=== PATIENT | male | born 1955 | race Caucasian/White ===

== ENCOUNTER 2019-09-07 09:35 | Inpatient (IN) | payer MEDICARE, OTHER ==
[~2019-09-07] VITALS: Ht 203.2 cm; Wt 167.0 kg
[2019-09-07] VITALS (14 sets, daily range): BP systolic 90–134; BP diastolic 51–96
--- NOTE | 2019-09-07 09:56 | NUR ---
PT IS IN ROOM #1B. DR MORENO EVALUATED THE PT.
[2019-09-07 10:06] LABS: BASOPHILS # (AUTO) 0.1 K/uL (0.0-8.0); EOSINOPHILS # (AUTO) 0.2 K/uL (0.0-0.7); EOSINOPHILS % (AUTO) 2.2 % (0.0-7.0); LYMPHOCYTES % (AUTO) 9.9 % (20.5-51.5); MEAN CORPUSCULAR HEMOGLOBIN 29.6 uug (23.8-33.4); MEAN CORPUSCULAR HGB CONC 32 g/dL (32.5-36.3); MEAN CORPUSCULAR VOLUME 91.8 fL (73.0-96.2); MONOCYTES # (AUTO) 1.3 K/uL (2.0-10.0); MONOCYTES % (AUTO) 12.8 % (0.0-11.0); NEUTROPHILS # (AUTO) 7.7 K/uL (1.8-8.9); NEUTROPHILS % (AUTO) 74.1 % (38.5-71.5); PLATELET COUNT (AUTO) 231 K/uL (152-348); WHITE BLOOD COUNT (AUTO) 10.4 K/uL (3.6-10.2)
[2019-09-07 10:08] LABS: HEMATOCRIT 11.9 % (36.7-47.1)
[2019-09-07 10:09] LABS: CREATININE 0.9 mg/dL (0.6-1.3); HEMOGLOBIN 3.8 g/dL (12.5-16.3)
[2019-09-07] MEDS ORDERED: LEVO25TA9 PO (10:09)
[2019-09-07] MEDS ORDERED: SENN-22 PO (10:09)
[2019-09-07] MEDS ORDERED: LACT1CAP74 PO (10:09)
[2019-09-07] MEDS ORDERED: MULT1TAB73 PO (10:09)
[2019-09-07] MEDS ORDERED: ATOR80TA PO (10:09)
[2019-09-07] MEDS ORDERED: HYDR453.3 TP (10:09)
[2019-09-07] MEDS ORDERED: DIGO250T PO (10:09)
[2019-09-07] MEDS ORDERED: AMOX500C2 PO (10:09)
[2019-09-07] MEDS ORDERED: GABA300C PO (10:09)
[2019-09-07] MEDS ORDERED: CEFT2PIG5 IV (10:09)
[2019-09-07] MEDS ORDERED: OXYC-128 PO (10:09)
[2019-09-07] MEDS ORDERED: ASPI81TA31 PO (10:09)
[2019-09-07] MEDS ORDERED: CARV25TA PO (10:09)
[2019-09-07] MEDS ORDERED: FURO-151 PO (10:09)
[2019-09-07] MEDS ORDERED: APIX5TAB PO (10:09)
[2019-09-07 10:14] LABS: BILIRUBIN,DIRECT 0.5 mg/dL (0.0-0.2); BILIRUBIN,TOTAL 0.8 mg/dL (0.2-1.0); TOTAL PROTEIN, SERUM 5.1 g/dL (6.4-8.2)
[2019-09-07] MEDS ORDERED: PANTOPRAZOLE SODIUM IV 80 MG in IV DEXTROSE 5% 500 ML IV ONE (10:15)
[2019-09-07] MEDS ORDERED: PANTOPRAZOLE SODIUM IV 80 MG in IV DEXTROSE 5% 100 ML IV ONE (10:15)
[2019-09-07] MEDS ORDERED: PANTOPRAZOLE SODIUM 40 MG VIAL IV ONE (10:30)
[2019-09-07] MEDS ORDERED: PANTOPRAZOLE SODIUM 40 MG VIAL ONE (10:30)
[2019-09-07] MEDS ORDERED: PANTOPRAZOLE SODIUM IV 40 MG in IV DEXTROSE 5% 100 ML IV ONE (10:45)
--- NOTE | 2019-09-07 11:43 | NUR ---
BLOOD TRANSFUSION OF THE 1st PRBC's WAS STARTED AT 1122. SEE BLOOD TRANSFUSION REPORT.
--- NOTE | 2019-09-07 11:43 | NUR ---
DR JANSEN WAS CALLED FOR GI CONSULT ACCORDING TO DR MORENO REQUEST. DR MORENO TALKED TO DR JANSEN.
--- NOTE | 2019-09-07 11:44 | NUR ---
REPORT WAS GIVEN TO [facility] MANAGER ZEHRA PT WAS TRANSFERED TO CCU ROOM #4 IVANA OVERFLOW.
[2019-09-07 12:05] LABS: *BILIRUBIN,URIN NEGATIVE (NEGATIVE); *BLOOD, URINE 2+ (NEGATIVE); *CLARITY,URINE CLEAR (CLEAR); *COLOR,URINE YELLOW (YELLOW); *KETONES,URINE NEGATIVE (NEGATIVE); *UROBILINOGEN,URINE 0.2 E.U./dl (NORMAL); LEUKOCYTE ESTERASE ,URINE TRACE (NEGATIVE); NITRITE, URINE NEGATIVE (NEGATIVE); PH,URINE 5.5 (5.0-8.0); UGLUCOSE NEGATIVE (NEGATIVE)
[2019-09-07 12:48] LABS: RBC,URINE 20-50 /HPF (0-3); WBC,URINE 0-3 /HPF (0-3)
[2019-09-07 12:49] LABS: BACTERIA,URINE NONE SEEN /HPF (NONE SEEN); SQUAMOUS EPITHELIAL CELL,UR NONE SEEN /HPF (NONE SEEN)
--- NOTE | 2019-09-07 13:45 | NUR ---
Attending physician Dr. Lainez in the unit to see and examine patient, full report given.
--- NOTE | 2019-09-07 13:45 | NUR ---
PICC line R.N. in the unit to replace picc line.
[2019-09-07] MEDS ORDERED: PANTOPRAZOLE SODIUM IV 80 MG in IV DEXTROSE 5% 500 ML IV SCH (15:00)
[2019-09-07] MEDS: MORPHINE SULFATE 4 MG/1 ML DISP.SYRIN IV PRN ×2 (15:12→20:33)
[2019-09-07] MEDS ORDERED: ONDANSETRON 4 MG/2 ML VIAL IV PRN (16:30)
[2019-09-07] MEDS ORDERED: ACETAMINOPHEN 650 MG SUPP.RECT RC PRN (16:30)
--- NOTE | 2019-09-07 16:36 | NUR ---
Orders to up-grade pt. to ICU status received.
[2019-09-07] MEDS: HYDROCORTISONE 2.5% CREAM 20 GM TUBE TOP SCH (16:42)
[2019-09-07] MEDS: IV D5/ 0.9% NACL 1,000 ML IV PRN (17:19)
[2019-09-07 20:09] LABS: HEMATOCRIT 14.7 % (36.7-47.1); HEMOGLOBIN 4.8 g/dL (12.5-16.3)
[2019-09-07] MEDS: PANTOPRAZOLE SODIUM 40 MG VIAL IV SCH (21:24)
[2019-09-08] VITALS (24 sets, daily range): BP systolic 90–134; BP diastolic 51–85
[2019-09-08] MEDS: MORPHINE SULFATE 4 MG/1 ML DISP.SYRIN IV PRN ×2 (00:36→06:22)
[2019-09-08 05:26] LABS: BASOPHILS # (AUTO) 0.1 K/uL (0.0-8.0); EOSINOPHILS # (AUTO) 0.2 K/uL (0.0-0.7); LYMPHOCYTES # (AUTO) 0.8 K/uL (20.0-40.0); MONOCYTES # (AUTO) 1.5 K/uL (2.0-10.0)
[2019-09-08 05:27] LABS: BASOPHILS % (AUTO) 1.2 % (0.0-2.0); EOSINOPHILS % (AUTO) 2.6 % (0.0-7.0); LYMPHOCYTES % (AUTO) 9.4 % (20.5-51.5); MEAN CORPUSCULAR HEMOGLOBIN 28.9 uug (23.8-33.4); MEAN CORPUSCULAR HGB CONC 33 g/dL (32.5-36.3); MEAN CORPUSCULAR VOLUME 88.2 fL (73.0-96.2); MONOCYTES % (AUTO) 18.1 % (0.0-11.0); NEUTROPHILS # (AUTO) 5.8 K/uL (1.8-8.9); NEUTROPHILS % (AUTO) 68.7 % (38.5-71.5); PLATELET COUNT (AUTO) 240 K/uL (152-348); WHITE BLOOD COUNT (AUTO) 8.5 K/uL (3.6-10.2)
[2019-09-08 05:43] LABS: BILIRUBIN,TOTAL 1.9 mg/dL (0.2-1.0); CREATININE 1.1 mg/dL (0.6-1.3); MAGNESIUM 1.9 mg/dL (1.8-2.4); PHOSPHOROUS 3.5 mg/dL (2.5-4.9); TOTAL PROTEIN, SERUM 5.5 g/dL (6.4-8.2)
[2019-09-08 05:50] LABS: RED BLOOD CELL COUNT(AUTO) 2.21 MIL/uL (4.06-5.63); THYROID STIMULATING HORMONE 13.4 mIU/mL (0.358-3.740)
[2019-09-08 05:51] LABS: HEMATOCRIT 19.5 % (36.7-47.1); HEMOGLOBIN 6.4 g/dL (12.5-16.3)
[2019-09-08] MEDS: IV D5/ 0.9% NACL 1,000 ML IV PRN (06:13)
[2019-09-08 06:27] LABS: EOSINOPHILS % (MANUAL) 3 % (0-8); LYMPHOCYTES % (MANUAL) 12 % (20-40); MONOCYTES % (MANUAL) 11 % (2-10); NEUTROPHILS % (MANUAL) 74 % (42-75)
--- NOTE | 2019-09-08 07:30 | NUR ---
Recieved pt in bed very sound asleep but arousable. Morbidly obesed male, arousable to call, oriented to his name but to time and polace. HR is Afib with controlled ventricular response. No c/o CP. Main IVF is infusing on the BRADLEY. Both lower legs have cellulitis and are weaqk to move around. Deniess of any pain.
[2019-09-08] MEDS: PANTOPRAZOLE SODIUM 40 MG VIAL IV SCH ×2 (09:31→20:27)
[2019-09-08] MEDS: HYDROCORTISONE 2.5% CREAM 20 GM TUBE TOP SCH ×2 (09:32→17:00)
[2019-09-08] MEDS ORDERED: GOLYTELY 4000 ML BOTTLE PO ONE (10:00)
--- NOTE | 2019-09-08 10:30 | NUR ---
H&H are low. Dr Lainez ordered another 2 units of PRBC. Pt is still NPO.
--- NOTE | 2019-09-08 10:50 | NUR ---
Fi8rst unit of PRBC started. Seen and examined by the chain saw mechanic with new orders. Wound dressing done. Both legs are elevated on pillows.
--- NOTE | 2019-09-08 12:59 | NUR ---
WOUND CARE CONSULT: PT PRESENTS WITH LOWER EXTREMITY WOUNDS WHICH ARE BEING FOLLOWED BY DPM. DEFER TO DPM FOR WOUND TREATMENT PLAN. PT IS ABLE TO TURN AND REPOSITION IN BED AND IS CONTINENT AT THIS TIME WITH LAGOS CATH. DISCOLORATION AND SCARS NOTED TO UPPER BODY, ESPECIALLY CHEST, ABDOMEN AND ARMS, PRESENT ON ADMISSION. PT STATES WAS PREVIOUSLY PICKING AT HIS SKIN. RECOMMENDATIONS MADE FOR SKIN PROTECTION. DISCUSSED WITH NURSING STAFF. WILL SEE PRN. Addendum: 09/08/19 at 1302 by DESMOND ERICKSON RN Amended: Links added.
[2019-09-08] MEDS ORDERED: Z GUARD REMEDY PASTE 57 GM TUBE TOP PRN (13:15)
[2019-09-08] MEDS ORDERED: FUROSEMIDE 20 MG/2 ML VIAL IV PRN (14:00)
--- NOTE | 2019-09-08 14:00 | NUR ---
Arteriaq US on BLE done at the bedside as ordered. Consents done for EGD, COlonoscopy and wound debridement abby polaced on chart.
--- NOTE | 2019-09-08 14:10 | NUR ---
[id number] first unit of PRBC without any reactions.
--- NOTE | 2019-09-08 16:00 | NUR ---
Seen and examined by Dr Macedo with new [id number]. 2nd unit of PRBC started. Lasix 20mg slow IVP given in between units . Pt diuresing very dark orange urine. Pt is on clear liquids and pt is drinking a lot.
[2019-09-08] MEDS: DIGOXIN 250 MCG TABLET PO SCH (16:59)
[2019-09-08] MEDS ORDERED: FUROSEMIDE 40 MG/4 ML VIAL IV ONE (18:00)
--- NOTE | 2019-09-08 18:00 | NUR ---
Pt diuresed well. Status downgraded to tele as ordered.
--- NOTE | 2019-09-08 20:00 | NUR ---
RECEIVED PT. AWAKE & ALERT X2 W/ PERIODS OF CONFUSION & FORGETFULNESS. ON O2 @ 5L NC W/ O2 SAT OF 100%. PICC ON BRADLEY INTACT & PATENT. C-SCOPE AFIB CONTROLLED. KEPT HOB ELEVATED. AFEBRILE. BP STABLE.
[2019-09-08] MEDS ORDERED: NORMAL SALINE FLUSH 10 ML DISP.SYRIN IV PRN (21:45)
[2019-09-08] MEDS: NORMAL SALINE FLUSH 10 ML DISP.SYRIN IV SCH (21:55)
--- NOTE | 2019-09-08 23:45 | NUR ---
PT HAD 2300CC OF GOLYTELY SOLUTION, REFUSED TO DRINK MORE. NPO AFTER MIDNIGHT.
[2019-09-09] VITALS (9 sets, daily range): BP systolic 104–132; BP diastolic 57–75
--- NOTE | 2019-09-09 00:15 | NUR ---
RECEIVED PT FROM CCU. PT IN NO ACUTE DISTRESS. IV INTACT. LAGOS INTACT. SNF ASSESSMENT DONE. SAFETY AND COMFORT PROVIDED. WILL CONTINUE TO MONITOR,
[2019-09-09] MEDS: MORPHINE SULFATE 4 MG/1 ML DISP.SYRIN IV PRN ×5 (01:31→21:09)
[2019-09-09] MEDS: NORMAL SALINE FLUSH 10 ML DISP.SYRIN IV SCH ×3 (05:41→22:03)
[2019-09-09 05:45] LABS: BASOPHILS # (AUTO) 0.1 K/uL (0.0-8.0); BASOPHILS % (AUTO) 0.6 % (0.0-2.0); EOSINOPHILS # (AUTO) 0.3 K/uL (0.0-0.7); EOSINOPHILS % (AUTO) 2.3 % (0.0-7.0); LYMPHOCYTES # (AUTO) 0.7 K/uL (20.0-40.0); LYMPHOCYTES % (AUTO) 5.7 % (20.5-51.5); MEAN CORPUSCULAR HEMOGLOBIN 28.8 uug (23.8-33.4); MEAN CORPUSCULAR HGB CONC 32 g/dL (32.5-36.3); MEAN CORPUSCULAR VOLUME 89.7 fL (73.0-96.2); MONOCYTES # (AUTO) 1.4 K/uL (2.0-10.0); MONOCYTES % (AUTO) 11.1 % (0.0-11.0); NEUTROPHILS # (AUTO) 10.3 K/uL (1.8-8.9); NEUTROPHILS % (AUTO) 80.3 % (38.5-71.5); PLATELET COUNT (AUTO) 211 K/uL (152-348); WHITE BLOOD COUNT (AUTO) 12.9 K/uL (3.6-10.2)
--- NOTE | 2019-09-09 05:47 | NUR ---
PT WAS TAKEN BY SURGERY NURSES. PREOP CHECKLIST DONE. PT IN NO ACUTE DISTRESS. PT WOUND DRESSING DONE. PT HAD NO BOWEL MOVEMENT. PT JUST HAD 2300CC OF GOLYTELY. SURGERY NURSES AWARE.
[2019-09-09 05:49] LABS: RED BLOOD CELL COUNT(AUTO) 2.45 MIL/uL (4.06-5.63)
[2019-09-09 05:50] LABS: POTASSIUM 4.1 mmol/L (3.5-5.1)
[2019-09-09 05:52] LABS: HEMOGLOBIN 7.1 g/dL (12.5-16.3)
[2019-09-09] MEDS ORDERED: FENTANYL CITRATE 100 MCG/2 ML AMPUL ONE (06:01)
[2019-09-09] MEDS ORDERED: IV NORMAL SALINE 1000 ML BAG IV ONE (06:50)
[2019-09-09] MEDS ORDERED: SIMETHICONE 40 MG/0.6 ML, 30ML BOTTLE MC ONE (06:50)
[2019-09-09] MEDS ORDERED: LIDOCAINE-MPF 2% 5 ML VIAL IJ ONE (06:50)
[2019-09-09] MEDS ORDERED: IRR STERIL WATER FOR IRR 1000 ML BOTTLE IR ONE (06:50)
[2019-09-09] MEDS ORDERED: PROPOFOL 200 MG/20 ML BOTTLE IV ONE (06:50)
--- NOTE | 2019-09-09 08:00 | NUR ---
Received patient from Surgery, patient went for EGD but No colonoscopy because of Poor Prep, On Oxygen at 2L via Nasal Cannula, No signs distress noted. No complain of Pain at this time. Will continue to monitor.
[2019-09-09] MEDS: PANTOPRAZOLE SODIUM 40 MG TABLET.DR PO SCH (08:45)
[2019-09-09] MEDS: DIGOXIN 250 MCG TABLET PO SCH (08:47)
[2019-09-09] MEDS: HYDROCORTISONE 2.5% CREAM 20 GM TUBE TOP SCH ×2 (08:50→16:46)
[2019-09-09] MEDS: THERAHONEY GEL 1.5 OZ TUBE TOP SCH (08:51)
[2019-09-09] MEDS ORDERED: FUROSEMIDE 40 MG/4 ML VIAL IV ONE (10:15)
--- NOTE | 2019-09-09 10:30 | NUR ---
Spoke with Dr. Powell with new order of lasix and carvedilol, May give after 2 hours of Blood transfusion.
[2019-09-09] MEDS: CARVEDILOL 6.25 MG TABLET PO SCH ×2 (12:10→18:16)
--- NOTE | 2019-09-09 12:50 | NUR ---
Blood Transfusion was completed, No Adverse Reaction noted. No Respiratory distress noted. No SOB. Afebrile. No Nausea/Vomiting. Will continue to monitor.
[2019-09-09] MEDS: FUROSEMIDE 40 MG TABLET PO SCH (16:46)
--- NOTE | 2019-09-09 18:17 | NUR ---
Patient in bed, awake and verbally responsive with episode of Confusion. No signs of distress noted. On Oxygen at 2L/min via Nasal Cannula. Pain medication given as ordered fo Pain on Both Lower Legs. Patient had a 1PRBC Blood transfusion for Hgb of 7.1. No Adverse reaction was noted. Afebrile. No nausea/Vomiting noted. kept clean ans comfortable. Will Endorse to Oncoming Nurse.
[2019-09-10] VITALS (12 sets, daily range): BP systolic 90–114; BP diastolic 53–69
[2019-09-10] MEDS: MORPHINE SULFATE 4 MG/1 ML DISP.SYRIN IV PRN ×4 (01:19→20:21)
[2019-09-10] MEDS: NORMAL SALINE FLUSH 10 ML DISP.SYRIN IV SCH ×3 (05:52→22:03)
[2019-09-10] MEDS: PANTOPRAZOLE SODIUM 40 MG TABLET.DR PO SCH (06:06)
--- NOTE | 2019-09-10 06:51 | NUR ---
PATIENT C/O OF LEG PAIN, PAIN MANAGED BY MORPHINE 4MG, EFFECTIVE. PATIENT IS IN NO ACUTE DISTRESS. ENDORSED TO AM SHIFT NURSE.
--- NOTE | 2019-09-10 07:30 | NUR ---
Received patient in Bed, asleep but able to wake up by calling his name. Remains on Oxygen at 2LPM via nasal cannula. No signs of distress noted. Breathing even and unlabored. No signs of Pain or discomfort. Will continue to monitor.
[2019-09-10] MEDS: CARVEDILOL 6.25 MG TABLET PO SCH ×2 (08:00→18:00)
[2019-09-10] MEDS: HYDROCORTISONE 2.5% CREAM 20 GM TUBE TOP SCH ×2 (09:24→16:42)
[2019-09-10] MEDS: FUROSEMIDE 40 MG TABLET PO SCH ×2 (09:24→17:33)
[2019-09-10] MEDS: DIGOXIN 250 MCG TABLET PO SCH (09:24)
[2019-09-10] MEDS: THERAHONEY GEL 1.5 OZ TUBE TOP SCH (09:24)
[2019-09-10 11:11] LABS: CREATININE 1.1 mg/dL (0.6-1.3); POTASSIUM 4.1 mmol/L (3.5-5.1)
[2019-09-10 11:16] LABS: BILIRUBIN,TOTAL 1.5 mg/dL (0.2-1.0); MAGNESIUM 1.9 mg/dL (1.8-2.4); TOTAL PROTEIN, SERUM 5.6 g/dL (6.4-8.2)
[2019-09-10 11:24] LABS: THYROID STIMULATING HORMONE 9.754 mIU/mL (0.358-3.740)
[2019-09-10 11:28] LABS: BASOPHILS # (AUTO) 0.1 K/uL (0.0-8.0); BASOPHILS % (AUTO) 1.1 % (0.0-2.0); EOSINOPHILS # (AUTO) 0.4 K/uL (0.0-0.7); EOSINOPHILS % (AUTO) 5.8 % (0.0-7.0); LYMPHOCYTES # (AUTO) 0.7 K/uL (20.0-40.0); LYMPHOCYTES % (AUTO) 9.9 % (20.5-51.5); MEAN CORPUSCULAR HEMOGLOBIN 29.6 uug (23.8-33.4); MEAN CORPUSCULAR HGB CONC 32 g/dL (32.5-36.3); MEAN CORPUSCULAR VOLUME 91.5 fL (73.0-96.2); MONOCYTES # (AUTO) 1.1 K/uL (2.0-10.0); MONOCYTES % (AUTO) 15.4 % (0.0-11.0); NEUTROPHILS # (AUTO) 4.8 K/uL (1.8-8.9); NEUTROPHILS % (AUTO) 67.8 % (38.5-71.5); PLATELET COUNT (AUTO) 219 K/uL (152-348); RED BLOOD CELL COUNT(AUTO) 2.66 MIL/uL (4.06-5.63)
[2019-09-10 11:36] LABS: HEMATOCRIT 24.3 % (36.7-47.1); HEMOGLOBIN 7.9 g/dL (12.5-16.3)
[2019-09-10 14:42] LABS: BASOPHILS % (MANUAL) 1 % (0-2); EOSINOPHILS % (MANUAL) 5 % (0-8); LYMPHOCYTES % (MANUAL) 6 % (20-40); METAMYELOCYTES % 1 % (0-1); MONOCYTES % (MANUAL) 13 % (2-10); NEUTROPHILS % (MANUAL) 74 % (42-75)
--- NOTE | 2019-09-10 18:19 | NUR ---
Patient in bed, awake and verbally responsive. remains on Oxygen at 2LPM via Nasal Cannula. No signs of distress noted. Breathing even and unlabored. Pain Medications given as ordered for pain on Both Lower Leg. Wound care done. Patient with recent Hgb of 7.9, Dr. Lainez with New Standing Order of Blood transfusion if hgb is below 8. Started Blood transfusion of 1PRBC at 1710, still running and tolerated well. Will Endorse to Oncoming Nurse.
--- NOTE | 2019-09-10 21:00 | NUR ---
received pt with ongoing Blood transfusion; and has infused and tolerated well; VSS.
[2019-09-11] VITALS: BP 90/50
[2019-09-11 00:21] VITALS: BP 101/58
[2019-09-11] MEDS: MORPHINE SULFATE 4 MG/1 ML DISP.SYRIN IV PRN ×3 (00:25→13:11)
[2019-09-11 04:00] VITALS: BP 106/54
[2019-09-11] MEDS: PANTOPRAZOLE SODIUM 40 MG TABLET.DR PO SCH (05:58)
[2019-09-11] MEDS: NORMAL SALINE FLUSH 10 ML DISP.SYRIN IV SCH ×2 (05:58→14:24)
[2019-09-11 06:24] LABS: BASOPHILS # (AUTO) 0.1 K/uL (0.0-8.0); EOSINOPHILS # (AUTO) 0.3 K/uL (0.0-0.7); HEMATOCRIT 26.8 % (36.7-47.1); HEMOGLOBIN 8.7 g/dL (12.5-16.3); LYMPHOCYTES # (AUTO) 0.6 K/uL (20.0-40.0); LYMPHOCYTES % (AUTO) 9.2 % (20.5-51.5); MEAN CORPUSCULAR HEMOGLOBIN 28.7 uug (23.8-33.4); MEAN CORPUSCULAR HGB CONC 32 g/dL (32.5-36.3); MEAN CORPUSCULAR VOLUME 88.8 fL (73.0-96.2); MONOCYTES # (AUTO) 0.8 K/uL (2.0-10.0); MONOCYTES % (AUTO) 11.8 % (0.0-11.0); PLATELET COUNT (AUTO) 260 K/uL (152-348); RED BLOOD CELL COUNT(AUTO) 3.02 MIL/uL (4.06-5.63); WHITE BLOOD COUNT (AUTO) 6.8 K/uL (3.6-10.2)
[2019-09-11 06:43] LABS: MAGNESIUM 1.8 mg/dL (1.8-2.4)
--- NOTE | 2019-09-11 07:15 | NUR ---
Received patient sitting at the edge of the bed, No signs of distress noted. No SOB. No complain of Discomfort at this time. Kept clean and comfortable. Will continue to monitor.
[2019-09-11] MEDS: CARVEDILOL 6.25 MG TABLET PO SCH (08:00)
[2019-09-11] MEDS: PROTEIN SUPPLEMENT (PROSTAT) 30 ML LIQUID PO SCH ×2 (08:08→12:06)
[2019-09-11] MEDS: HYDROCORTISONE 2.5% CREAM 20 GM TUBE TOP SCH (09:14)
[2019-09-11] MEDS: DIGOXIN 250 MCG TABLET PO SCH (09:14)
[2019-09-11] MEDS: FUROSEMIDE 40 MG TABLET PO SCH (09:14)
[2019-09-11] MEDS: THERAHONEY GEL 1.5 OZ TUBE TOP SCH (09:14)
[2019-09-11] MEDS ORDERED: MAGNESIUM OXIDE 400 MG TABLET PO ONE (11:00)
[2019-09-11 11:40] VITALS: BP 120/69
[2019-09-11] MEDS ORDERED: PANT40TA2 PO (13:25)
[2019-09-11] MEDS ORDERED: ASPI-618 PO (13:25)
[2019-09-11] MEDS ORDERED: ATOR20TA PO (13:25)
[2019-09-11] MEDS ORDERED: PROT30LI PO (13:25)
[2019-09-11] MEDS ORDERED: CARV6.252 PO (13:25)
[2019-09-11] MEDS ORDERED: LEVO50TA8 PO (13:25)
[2019-09-11] MEDS ORDERED: MENT71OI TOP (13:25)
[2019-09-11] MEDS ORDERED: APIX2.5T PO (13:25)
[2019-09-11] MEDS ORDERED: ACET-2154 PO (13:25)
--- NOTE | 2019-09-11 15:20 | NUR ---
Patient is awake and verbally responsive. No signs of distress noted. On Oxygent at 2LPM via Nasal Cannula. Pain medications given as ordered. Patient with Discharge Order to [facility], Called [facility] and spoke with Rea DAVALOS and Endorsed Accordingly. Discharge Instructions given to patient and verbalized Understanding. PICC with 3 lumens will not remove because patient has IV Medications. Removed Wrist band and color television console monitor. Patient was Picked up by 4 EMT in Stable Condition.
[2019-09-11 16:00] VITALS: BP 150/61
[2019-09-12] MEDS ORDERED: LEVOTHYROXINE SODIUM 50 MCG TABLET PO SCH (07:00)
== END 2019-09-11 15:20 | DRG 377 ==
LOC: ER 09:35 → CCU 11:52 → TELE3 09-09 00:41
PROVIDERS: ADMIT Internal Medicine; ATTEND Internal Medicine
PROC: 30243N1 Transfusion of Nonautologous Red Blood Cells into Central Vein, Percutaneous Approach (ICD-10-PCS; principal; 2019-09-07)
PROC: 02PYX3Z Removal of Infusion Device from Great Vessel, External Approach (ICD-10-PCS; 2019-09-07)
PROC: 02HV33Z Insertion of Infusion Device into Superior Vena Cava, Percutaneous Approach (ICD-10-PCS; 2019-09-07)
PROC: B548ZZA Ultrasonography of Superior Vena Cava, Guidance (ICD-10-PCS; 2019-09-07)
PROC: 0DB68ZX Excision of Stomach, Via Natural or Artificial Opening Endoscopic, Diagnostic (ICD-10-PCS; 2019-09-09)
PROC: 0DJD8ZZ Inspection of Lower Intestinal Tract, Via Natural or Artificial Opening Endoscopic (ICD-10-PCS; 2019-09-09)
DX: K29.01 Acute gastritis with bleeding (principal); N17.0 Acute kidney failure with tubular necrosis; E43 Unspecified severe protein-calorie malnutrition; I50.43 Acute on chronic combined systolic (congestive) and diastolic (congestive) heart failure; D62 Acute posthemorrhagic anemia; I48.20 Chronic atrial fibrillation, unspecified; L97.821 Non-pressure chronic ulcer of other part of left lower leg limited to breakdown of skin; L97.311 Non-pressure chronic ulcer of right ankle limited to breakdown of skin; L97.811 Non-pressure chronic ulcer of other part of right lower leg limited to breakdown of skin; L03.115 Cellulitis of right lower limb; Z68.41 Body mass index [BMI] 40.0-44.9, adult; D68.59 Other primary thrombophilia; I11.0 Hypertensive heart disease with heart failure; I70.248 Atherosclerosis of native arteries of left leg with ulceration of other part of lower leg; I70.233 Atherosclerosis of native arteries of right leg with ulceration of ankle; I70.238 Atherosclerosis of native arteries of right leg with ulceration of other part of lower leg; I70.235 Atherosclerosis of native arteries of right leg with ulceration of other part of foot; L97.511 Non-pressure chronic ulcer of other part of right foot limited to breakdown of skin; D63.8 Anemia in other chronic diseases classified elsewhere; Z74.09 Other reduced mobility; E66.01 Morbid (severe) obesity due to excess calories; Z71.3 Dietary counseling and surveillance; E03.9 Hypothyroidism, unspecified; Z79.02 Long term (current) use of antithrombotics/antiplatelets; Z79.890 Hormone replacement therapy; Z87.891 Personal history of nicotine dependence; Z89.432 Acquired absence of left foot; Z79.01 Long term (current) use of anticoagulants; I34.0 Nonrheumatic mitral (valve) insufficiency; I27.20 Pulmonary hypertension, unspecified; G89.29 Other chronic pain; G62.9 Polyneuropathy, unspecified; Z86.69 Personal history of other diseases of the nervous system and sense organs; Z79.82 Long term (current) use of aspirin
CPT/HCPCS: 36415; 70030-TC; 71045; 82378; 83735; 84100; 84443; 85018; 85025; 85730; 86850; 86900; 86901; 86920; 88342; 93005; 93307; A4217; A4663; C9113; G0378; J1940; J2270; J3010; J3490; J7030; J7040; J7050; J7060; P9016-BL; P9021